=== PATIENT | male | born 1945 | race Caucasian/White ===

== ENCOUNTER 2016-08-15 08:11 | Day surgery (SDC) | payer OTHER ==
[~2016-08-15] VITALS: Ht 175.3 cm; Wt 111.0 kg
[~2016-08-15 08:11] MED LIST: ASPIR 8181 M1 PO; CELEXA20 MG PO; CYMBALTA30 MG PO; GLUCOPHAGE500 MG PO; ISOSORBIDE MONO30 MG PO; LYRICA50 MG PO; MELATONIN5 M1 PO; NITROSTAT0.4 MG SL; NOVOLOG PE100 UNITS/ SC; PLAVIX75 MG PO; PROTONIX20 MG PO; PROTONIX40 MG PO; REMERON15 M2 PO; TOPROL XL25 MG PO; TOUJEO SOL300 UNIT/1 SC; TYLENOL EXTRA500 MG PO; ZESTRIL10 MG PO; ZOCOR10 MG PO
[2016-08-15] MEDS ORDERED: ZALEPLON5 MG PO (08:58)
[2016-08-15 08:59] VITALS: BP 151/82
[2016-08-15 09:03] LABS: POINT-OF-CARE METER ID UU14174212
[2016-08-15 11:07] LABS: POINT-OF-CARE METER ID UU13113675; POINT-OF-CARE USER ID 515036437
[2016-08-15 11:45] VITALS: BP 156/71
[2016-08-15 12:28] VITALS: BP 151/69
== END 2016-08-15 12:48 | disposition home or self-care (01) ==
LOC: SDC 08:11
PROVIDERS: Ophthalmology
DX: H35.372 Puckering of macula, left eye (principal); H35.342 Macular cyst, hole, or pseudohole, left eye; I10 Essential (primary) hypertension; E11.40 Type 2 diabetes mellitus with diabetic neuropathy, unspecified; E78.5 Hyperlipidemia, unspecified; I25.10 Atherosclerotic heart disease of native coronary artery without angina pectoris; G47.33 Obstructive sleep apnea (adult) (pediatric); G47.30 Sleep apnea, unspecified; I25.2 Old myocardial infarction; Z79.82 Long term (current) use of aspirin; Z79.4 Long term (current) use of insulin; Z95.5 Presence of coronary angioplasty implant and graft; Z82.49 Family history of ischemic heart disease and other diseases of the circulatory system; Z82.5 Family history of asthma and other chronic lower respiratory diseases; Z80.0 Family history of malignant neoplasm of digestive organs; Z80.49 Family history of malignant neoplasm of other genital organs
CPT/HCPCS: 82948; J0690; J1100; J2405; J2795; J3300